=== PATIENT | female | born 1970 | race Caucasian/White ===

== ENCOUNTER 2021-12-05 10:59 | Outpatient (RCR) | payer BC, SELFPAY | END 2022-01-04 23:59 | disposition home or self-care (01) | LOC: CHSWOUND 10:59 | DX: S67.191A Crushing injury of left index finger, initial encounter (principal); S67.193A Crushing injury of left middle finger, initial encounter; S67.195A Crushing injury of left ring finger, initial encounter; S67.190A Crushing injury of right index finger, initial encounter; S67.192A Crushing injury of right middle finger, initial encounter; S67.194A Crushing injury of right ring finger, initial encounter; S61.201D Unspecified open wound of left index finger without damage to nail, subsequent encounter; S61.200D Unspecified open wound of right index finger without damage to nail, subsequent encounter; S61.203D Unspecified open wound of left middle finger without damage to nail, subsequent encounter; S61.202D Unspecified open wound of right middle finger without damage to nail, subsequent encounter; S61.205D Unspecified open wound of left ring finger without damage to nail, subsequent encounter; S61.204D Unspecified open wound of right ring finger without damage to nail, subsequent encounter; W23.0XXA Caught, crushed, jammed, or pinched between moving objects, initial encounter; E06.3 Autoimmune thyroiditis; E03.9 Hypothyroidism, unspecified; F32.A Depression, unspecified | CPT/HCPCS: 99214; G0463 ==